=== PATIENT | male | born 1955 | race Caucasian/White ===

== ENCOUNTER → 2022-12-13 12:46 | Outpatient (BNVA) | payer OTHER, SELFPAY | PROVIDERS: Family Provider Internal Medicine; PCP Family Medicine; Referring Provider Family Medicine; Visit Provider Specialist | DX: G56.03 Carpal tunnel syndrome, bilateral upper limbs (principal); M79.641 Pain in right hand; G62.89 Other specified polyneuropathies | CPT/HCPCS: 95911 ==

== ENCOUNTER → 2023-11-26 13:49 | Outpatient (BNVA) | payer OTHER, SELFPAY | PROVIDERS: Family Provider Internal Medicine; PCP Family Medicine; Visit Provider Nurse Practitioner Family | DX: D48.5 Neoplasm of uncertain behavior of skin (principal); L57.0 Actinic keratosis; L57.8 Other skin changes due to chronic exposure to nonionizing radiation; L81.4 Other melanin hyperpigmentation; D22.5 Melanocytic nevi of trunk; L82.1 Other seborrheic keratosis | CPT/HCPCS: 11102; 17000; 99203 ==

== ENCOUNTER 2023-12-09 09:29 | Outpatient (CLI) | payer OTHER, SELFPAY ==
--- NOTE | 2023-12-09 09:39 | MM_ITS ---
WS: [id number] DIAGNOSTIC BILATERAL DIGITAL BREAST TOMOSYNTHESIS MAMMOGRAPHY WITH CAD LEFT breast ultrasound, limited HISTORY: INCREASED RISK OF BREAST CANCER COMPARISON: None available. TECHNIQUE: Bilateral craniocaudad, mediolateral oblique, and mediolateral views are submitted with to mosynthesis and SM. Spot compression LEFT CC and MLO computer aided detection utilized. Breast composition: There are scattered areas of fibroglandular density. Solid lobulated mass of increased density in the retroareolar region measures 1.2 x 1.4 x 1.7 cm. Sli ght retraction of the nipple. The overlying subcutaneous soft tissue also appears thickened. RIGHT br east is negative. LEFT breast ultrasound, limited. Irregular mass with slightly angular and indistinct margins. This is a heterogeneous mass in the retr oareolar region. This does not have a typical appearance for gynecomastia. No similar finding on the RIGHT. No adenopathy. MM/MM diag BI tomosynthesis [id number] IMPRESSION: BI-RADS: 4- Suspicious Finding - Biopsy Should be Considered FOLLOW UP: Biopsy Recommended Ultrasound-guided biopsy recommended of the retroareolar mass LEFT breast. Numerous attempts were made by myself to contact Dr. Mayer without success. The re was no answer of the phone number provided. 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
== END 2023-12-09 09:30 | disposition home or self-care (01) ==
LOC: RAD 09:29
PROVIDERS: PCP Family Medicine; Visit Provider Family Medicine
DX: D48.62 Neoplasm of uncertain behavior of left breast (principal); N63.42 Unspecified lump in left breast, subareolar; R92.323 Mammographic fibroglandular density, bilateral breasts
CPT/HCPCS: 76641; 77062; G0279

== ENCOUNTER → 2023-12-10 07:54 | Outpatient (BNVA) | payer OTHER, SELFPAY | PROVIDERS: PCP Family Medicine; Visit Provider Dermatology | DX: C44.41 Basal cell carcinoma of skin of scalp and neck (principal); D48.5 Neoplasm of uncertain behavior of skin; N63.0 Unspecified lump in unspecified breast | CPT/HCPCS: 11106; 13132; 17311; 99214 ==

== ENCOUNTER → 2023-12-25 14:25 | Outpatient (BNVA) | payer OTHER, SELFPAY | PROVIDERS: PCP Family Medicine; Visit Provider Dermatology | DX: N61.0 Mastitis without abscess (principal); C44.519 Basal cell carcinoma of skin of other part of trunk | CPT/HCPCS: 17262; 99214 ==

== ENCOUNTER 2024-03-24 10:09 | Outpatient (CLI) | payer OTHER, SELFPAY ==
--- NOTE | 2024-03-24 10:17 | XRR_ITS ---
PROCEDURE INFORMATION: Exam: XR Right Knee Exam date and time: 03/24/2024 10:23 AM Age: 69 years old Clinical indication: Pain; Knee; Right; Additional info: M25.569 - pain in unspecified knee TECHNIQUE: Imaging protocol: Radiologic exam of the right knee. Views: 3 views. COMPARISON: No relevant prior studies available. FINDINGS: Bones/joints: Normal. Soft tissues: Normal. XR/XR knee RT 3V* [id number] IMPRESSION: No acute findings.
--- NOTE | 2024-03-24 10:17 | XRR_ITS ---
PROCEDURE INFORMATION: Exam: XR Left Knee Exam date and time: 03/24/2024 10:23 AM Age: 69 years old Clinical indication: Pain; Knee; Right; Additional info: M25.569 - pain in unspecified knee TECHNIQUE: Imaging protocol: Radiologic exam of the left knee. Views: 3 views. COMPARISON: No relevant prior studies available. FINDINGS: Bones/joints: No fracture or dislocation is appreciated. There is minimal joint space narrowing medially. There are small patellar and tibial spine osteophytes. There may be small loose bodies posteriorly on the lateral view. Is a physiologic amount of fluid within the joint. Bony mineralization is normal. Soft tissues: Normal. XR/XR knee LT 3V* [id number] IMPRESSION: 1. Mild osteoarthritis. 2. Possible loose bodies within the joint posteriorly.
== END 2024-03-24 10:10 | disposition home or self-care (01) ==
LOC: RAD 10:11
PROVIDERS: PCP Family Medicine; Visit Provider Internal Medicine Rheumatology
DX: L40.8 Other psoriasis (principal); D18.01 Hemangioma of skin and subcutaneous tissue; L81.4 Other melanin hyperpigmentation; Z08 Encounter for follow-up examination after completed treatment for malignant neoplasm; Z85.828 Personal history of other malignant neoplasm of skin; M17.12 Unilateral primary osteoarthritis, left knee; M25.762 Osteophyte, left knee; R93.6 Abnormal findings on diagnostic imaging of limbs; M25.561 Pain in right knee; N61.0 Mastitis without abscess
CPT/HCPCS: 73562; 99204; 99214

== ENCOUNTER → 2024-05-05 13:56 | Outpatient (BNVA) | payer OTHER, SELFPAY | PROVIDERS: PCP Family Medicine; Visit Provider Dermatology | DX: N61.0 Mastitis without abscess (principal); L40.8 Other psoriasis; L81.4 Other melanin hyperpigmentation; Z08 Encounter for follow-up examination after completed treatment for malignant neoplasm; Z85.828 Personal history of other malignant neoplasm of skin | CPT/HCPCS: 99214 ==

== ENCOUNTER → 2024-05-26 13:11 | Outpatient (BNVA) | payer OTHER, SELFPAY | PROVIDERS: PCP Family Medicine; Visit Provider Nurse Practitioner Family | DX: L40.8 Other psoriasis (principal); L81.4 Other melanin hyperpigmentation; H00.12 Chalazion right lower eyelid; L82.1 Other seborrheic keratosis; Z08 Encounter for follow-up examination after completed treatment for malignant neoplasm; Z85.828 Personal history of other malignant neoplasm of skin; D48.5 Neoplasm of uncertain behavior of skin; L57.0 Actinic keratosis | CPT/HCPCS: 11102; 17000; 99214 ==

== ENCOUNTER → 2024-06-24 14:36 | Outpatient (BNVA) | payer OTHER, SELFPAY | PROVIDERS: PCP Family Medicine; Visit Provider Internal Medicine Rheumatology | DX: M06.041 Rheumatoid arthritis without rheumatoid factor, right hand (principal); M06.042 Rheumatoid arthritis without rheumatoid factor, left hand; Z79.899 Other long term (current) drug therapy; M17.0 Bilateral primary osteoarthritis of knee | CPT/HCPCS: 36415; 80076; 82565; 85025; 85651; 86140; 99214 ==

== ENCOUNTER 2024-07-28 11:06 | Outpatient (CLI) | payer OTHER, SELFPAY ==
[2024-07-28 12:25] LABS: Basophils # 0.1 10^3/uL (0.0-0.1); Basophils % 0.8 %; Eosinophils # 0.2 10^3/uL (0.0-0.8); Eosinophils % 1.5 %; Hematocrit 47.2 % (37-53); Lymphocytes # 4.9 10^3/uL (0.8-4.8); Lymphocytes % 38.4 %; Mean Corpuscular Hemoglobin 30.6 pg (27-33); Mean Corpuscular Volume 95.5 fl (82-101); Mean Platelet Volume 9.7 fL (7.4-10.4); Monocytes # 0.7 10^3/uL (0.2-0.9); Monocytes % 5.4 %; Neutrophils # 6.78 10^3/uL (1.8-7.7); Neutrophils % 53.4 %; Nucleated Red Blood Cells % 0 %; Platelet Count 264 10^3/cmm (157-399); Red Blood Count 4.94 10^6/uL (3.85-5.65); Red Cell Distribution Width 13.9 % (12.1-15.1); White Blood Count 12.67 10^3/uL (3.29-11.43)
[2024-07-28 12:27] LABS: Erythrocyte Sedimentation Rate 9 mm/hr (0-10)
[2024-07-28 12:41] LABS: Alanine Aminotransferase 44 U/L (0-41); Albumin Level 4.1 g/dL (3.5-5.2); Alkaline Phosphatase 85 U/L (40-130); Aspartate Amino Transferase 21 U/L (0-40); Glomerular Filtration Rate 83.7 mL/min (90-130); Total Bilirubin 0.2 mg/dL (0.15-1.2); Total Protein 7.1 g/dL (6.6-8.7)
== END 2024-07-28 11:07 | disposition home or self-care (01) ==
PROVIDERS: PCP Family Medicine; Visit Provider Internal Medicine Rheumatology
DX: Z79.899 Other long term (current) drug therapy (principal); M06.041 Rheumatoid arthritis without rheumatoid factor, right hand; M06.042 Rheumatoid arthritis without rheumatoid factor, left hand
CPT/HCPCS: 36415; 80076; 82565; 85025; 85651; 86140

== ENCOUNTER → 2024-08-11 09:03 | Outpatient (BNVA) | payer OTHER, SELFPAY | PROVIDERS: PCP Family Medicine; Visit Provider Nurse Practitioner Family | DX: L81.4 Other melanin hyperpigmentation (principal); L57.8 Other skin changes due to chronic exposure to nonionizing radiation; X32.XXXA Exposure to sunlight, initial encounter; L57.0 Actinic keratosis; Z08 Encounter for follow-up examination after completed treatment for malignant neoplasm; Z85.828 Personal history of other malignant neoplasm of skin | CPT/HCPCS: 17000; 99213 ==

== ENCOUNTER → 2024-11-10 13:01 | Outpatient (BNVA) | payer OTHER, SELFPAY | PROVIDERS: PCP Family Medicine; Visit Provider Internal Medicine Rheumatology | DX: M06.041 Rheumatoid arthritis without rheumatoid factor, right hand (principal); M06.042 Rheumatoid arthritis without rheumatoid factor, left hand; Z79.899 Other long term (current) drug therapy; M17.0 Bilateral primary osteoarthritis of knee; Z79.1 Long term (current) use of non-steroidal anti-inflammatories (NSAID) | CPT/HCPCS: 36415; 80076; 82565; 85025; 85651; 86140; 99214 ==

== ENCOUNTER → 2024-11-17 09:06 | Outpatient (BNVA) | payer OTHER, SELFPAY | PROVIDERS: PCP Family Medicine; Visit Provider Nurse Practitioner Family | DX: L81.4 Other melanin hyperpigmentation (principal); L82.1 Other seborrheic keratosis; Z08 Encounter for follow-up examination after completed treatment for malignant neoplasm; Z85.828 Personal history of other malignant neoplasm of skin; L57.0 Actinic keratosis | CPT/HCPCS: 17000; 99213 ==

== ENCOUNTER → 2024-12-16 08:31 | Outpatient (BNVA) | payer OTHER, SELFPAY | PROVIDERS: PCP Family Medicine; Visit Provider Nurse Practitioner Family | DX: S20.309A Unspecified superficial injuries of unspecified front wall of thorax, initial encounter (principal); N63.0 Unspecified lump in unspecified breast; L81.4 Other melanin hyperpigmentation; Z08 Encounter for follow-up examination after completed treatment for malignant neoplasm; Z85.828 Personal history of other malignant neoplasm of skin; X58.XXXA Exposure to other specified factors, initial encounter | CPT/HCPCS: 99213 ==

== ENCOUNTER 2025-01-07 10:15 | Outpatient (CLI) | payer OTHER, SELFPAY ==
--- NOTE | 2025-01-07 10:19 | MM_ITS ---
WS: [id number] LEFT 3D TOMOSYNTHESIS DIGITAL MAMMOGRAPHY WITH CAD CLINICAL INFORMATION: UNSPECIFIED LUMP IN UNSPECIFIED BREAST HISTORY: LEFT breast lump. History of prior abscess drainage. Prior resection of the LEFT subareolar breast nodule by dermatology reported to represent an abscess. COMPARISON: 12/09/2023 and 01/01/2024. TECHNIQUE: 3 views of the left breast were obtained. FINDINGS: Scattered fibroglandular densities of the left breast. Similar-appearing lobulated density retroareolar LEFT breast measuring 1.1 x 1.4 cm. Stable retraction of the nipple. Ultrasound described below. ULTRASOUND BREAST LEFT TECHNIQUE: Ultrasound left breast focused area of concern. CLINICAL INFORMATION: UNSPECIFIED LUMP IN UNSPECIFIED BREAST FINDINGS: Suspected recurrent abscess subareolar with complex internal debris. This measures approximately 1.3 x 1.5 x 0.8 cm. Recommend interval follow-up after treatment or completion of antibiotics. This has a complex appearance and may not be easily drainable. Incidental echogenic lipoma at the 7 o'clock position 2 cm from the nipple in the area of palpable concern. MM/MM diag tomosynthesis [id number] IMPRESSION: DENSITY: There are scattered areas of fibroglandular density. BI-RADS: 3 - Probably Benign. FOLLOW UP: See Report Recommend follow-up ultrasound after completion of antibiotics or additional vides rgery/drainage to ensure resolution.
== END 2025-01-07 10:16 | disposition home or self-care (01) ==
LOC: RAD 10:15
PROVIDERS: PCP Family Medicine; Visit Provider Nurse Practitioner Family
DX: N63.0 Unspecified lump in unspecified breast (principal); N63.42 Unspecified lump in left breast, subareolar; R92.332 Mammographic heterogeneous density, left breast
CPT/HCPCS: 76642; 77061; 77063

== ENCOUNTER → 2025-01-11 14:30 | Outpatient (BNVA) | payer OTHER, SELFPAY | PROVIDERS: PCP Family Medicine; Visit Provider Nurse Practitioner Family | DX: L02.213 Cutaneous abscess of chest wall (principal); L82.0 Inflamed seborrheic keratosis; L53.8 Other specified erythematous conditions; R20.8 Other disturbances of skin sensation; L29.89 Other pruritus | CPT/HCPCS: 17110; 99213 ==

== ENCOUNTER → 2025-01-25 10:20 | Outpatient (BNVA) | payer OTHER, SELFPAY | PROVIDERS: PCP Family Medicine; Visit Provider Student in an Organized Health Care Education/Training Program | DX: N64.59 Other signs and symptoms in breast (principal); R03.0 Elevated blood-pressure reading, without diagnosis of hypertension | CPT/HCPCS: 99204 ==